=== PATIENT | male | born 2000 | race Caucasian/White ===

== ENCOUNTER 2018-02-16 11:03 | Emergency (ER) | payer MEDICAID ==
[2018-02-16 11:10] VITALS: BP 155/78; PULSE 62; RESP 18; TEMP 98.1; O2SAT 95
--- NOTE | 2018-02-16 11:21 | EDPHY ---
H & P Stated Complaint: skin irritation above R eye x 2 days Time Seen by Provider: 02/16/18 11:20 HPI/ROS: HPI: This is a 18-year-old male who presents with Chief Complaint: skin irritation above R eye x 2 days Location: Right side of forehead Quality: Pimple Duration: 1 day Signs and Symptoms: no fever, no nausea, no vomiting, no photophobia, no noise sensitivity, no neck stiffness, no ear pain, no tinnitus, no nasal congestion, no sinus pressure, no weakness, no radiation, no aura, no drainage, no visual changes Timing: Acute, improving Severity: Mild Context: Patient is generally healthy, reports that he gets acne on his forehead often. Last night he squeezed a pimple on the right side of his forehead that was rather large and expressed some discharge. He noticed some surrounding redness and swelling that extended into his right eyebrow. He was concerned that it may spread into his right eye. Denies any ocular discharge/ matting of the eyelashes/vision changes. Patient's primary care provider is in [place]. Does not washes face regularly and has never been on acne medication. Patient reports that his symptoms have greatly improved since last night. Modifying Factors: None Comment: ROS: see HPI Constitutional: No fever, no chills, no weight loss Eyes: No blurred vision Respiratory: No shortness of breath, no cough Cardiovascular: No chest pain, no palpitations Gastrointestinal: No nausea, no vomiting, no diarrhea, no hematemesis, no blood in stool Genitourinary: No dysuria, no blood in urine Extremities: No myalgias, no edema Neurologic: No weakness, no numbness Skin: No rashes, no petechiae Hematologic: No bruising, no bleeding MEDICAL/SURGICAL/SOCIAL HISTORY: Medical/surgical history: subluxation L shoulder, appendectomy, infectious mononucleosis, community-acquired pneumonia, T[place]-shatter Dz, marijuana use, ADHD, Anxiety Disorder. Social history: Student. CONSTITUTIONAL: Extremely polite and cooperative, male, awake and alert, no obvious distress HEENT: Atraumatic and normocephalic, PERRL, EOMI. No periorbital swelling/edema /redness. Tympanic membranes clear. Oropharynx clear, no exudate and moist pink mucosa. Airway patent. No lymphadenopathy. No meningismus. Cardiovascular: Normal S1/S2, regular rate, regular rhythm, without murmur rub or gallop. PULMONARY/CHEST: Symmetrical and nontender. Clear to auscultation bilaterally. Good air movement. No accessory muscle usage. ABDOMEN: Soft, nondistended, nontender, no rebound, no guarding, no peritoneal signs, no masses or organomegaly. No CVAT. EXTREMITIES: 2/2 pulses, strength 5/5, no deformities, no clubbing, no cyanosis or edema. NEUROLOGICAL: no focal neuro deficits. GCS 15. SKIN: Warm and dry, pinpoint induration noted on right side of forehead, no erythema. no rash. Good capillary refill. Source: Patient Exam Limitations: No limitations - Personal History Current Tetanus/Diphtheria Vaccine: No Current Tetanus Diphtheria and Acellular Pertussis (TDAP): No - Medical/Surgical History Hx Asthma: No Hx Chronic Respiratory Disease: No Hx Diabetes: No Hx Cardiac Disease: No Hx Renal Disease: No Hx Cirrhosis: No Hx Alcoholism: No Hx HIV/AIDS: No Hx Splenectomy or Spleen Trauma: No Other PMH: sublauxation L shoulder, appy, mono, PNA [place]-shaltter Dz, marijuana, ADHD, Anxiety Disorder. - Social History Smoking Status: Never smoked Constitutional: Initial Vital Signs Temperature (C) 36.7 C 02/16/18 11:07 Heart Rate 62 02/16/18 11:07 Respiratory Rate 18 02/16/18 11:07 Blood Pressure 155/78 H 02/16/18 11:07 O2 Sat (%) 95 02/16/18 11:07 O2 Delivery Mode Room Air Allergies/Adverse Reactions: No Known Allergies Allergy (Verified 02/16/18 11:07) Home Medications: Medication Instructions Recorded Amitriptyline HCl 09/17/16 Benadryl 09/17/16 Buspar (*) 09/17/16 INTUNIV 09/17/16 Trileptal 09/17/16 Valtrex 09/17/16 Zantac 09/17/16 Doxycycline Hyclate 100 mg PO BID #14 tablet 02/16/18 Medical Decision Making ED Course/Re-evaluation: Patient does not have any signs of periorbital cellulitis/facial cellulitis No fluctuance to I and D. Symptoms improving. Rx Doxycycline This patient was seen under the supervision of my secondary supervising physician. I evaluated care for this patient independently. Differential Diagnosis: Differential diagnosis includes but is not limited to facial cellulitis, periorbital cellulitis, abscess, comedone. Departure - Departure Disposition: Home, Routine, Self-Care Clinical Impression: Acne Qualifiers: Acne type: acne vulgaris Qualified Code(s): L70.0 - Acne vulgaris Condition: Good Instructions: Benzoyl Peroxide (On the skin), Antiacne Antibacterial (On the skin) Additional Instructions: Please do not pick the comedones on your face. Wash your face twice daily with [id number] acne facial wash. Follow-up with primary care provider. Referral to dermatology for further evaluation would be beneficial. Referrals: LINDA LYNCH [Other] - As per Instructions Prescriptions: Doxycycline Hyclate 100 mg PO BID #14 tablet
== END 2018-02-16 11:40 | disposition home or self-care (01) ==
DX: L70.0 Acne vulgaris (principal)